=== PATIENT | female | born 1980 ===

== ENCOUNTER 2018-03-17 00:06 | Inpatient (IN) | payer SELFPAY ==
[2018-03-17] MEDS ORDERED: Morphine 4 MG/ML VIAL SLOW IVP PRN (00:37)
[2018-03-17] MEDS ORDERED: Sodium Chloride 0.9% 1,000 ML IV SCH ×2 (01:00→02:01)
[2018-03-17] MEDS ORDERED: Promethazine HCl 25 MG/ML VIAL IM/IV PRN (01:06)
--- NOTE | 2018-03-17 02:14 | PDOC.FPRHP ---
- History of Present Illness Chief Complaint: Abdominal Pain History of Present Illness: 37yo F with PMH of crohns disease s/p multiple abdominal surgeries including bowel resection and frequent SBOs direct admit from [facility] with Dx of SBO. Pt reports 12 hour history of worsening abdominal pain and distention. Pain characterized as crampy and 11/10 in the epigastric area. Last BM was 24 hours ago, stool was loose (pt has chronic diarrhea), no hematochezia/melena, no fevers/chills, nausea, no vomiting. At [facility] CT Abdomen/Pelvis showed a moderate-severe SBO. Pt lives in [place], [place]. ED Course: At [facility] CT Abdomen/Pelvis showed a moderate-severe SBO. Electrolytes WNL, BUN and Cr WNL. - Allergies/Adverse Reactions Allergies Allergy/AdvReac Type Severity Reaction Status Date / Time Iodinated Contrast- Oral and Allergy Verified 03/17/18 01:32 IV Dye ondansetron [From Zofran] Allergy Verified 03/17/18 01:32 Sulfa (Sulfonamide Allergy Verified 03/17/18 01:32 Antibiotics) tramadol Allergy Verified 03/17/18 01:32 - Home Medications Medication Instructions Recorded Confirmed Type Dextroamphetamine/Amphetamine 20 mg PO DAILY 03/17/18 03/17/18 History [Adderall 20 mg Tablet] Gabapentin 300 mg PO TID 03/17/18 03/17/18 History QUEtiapine Fumarate [SEROquel XR] 150 mg PO HS 03/17/18 03/17/18 History clonazePAM [Klonopin] 1 mg PO BID 03/17/18 03/17/18 History sulfaSALAzine [Azulfidine] 500 mg PO BID 03/17/18 03/17/18 History - History PMHx: Crohns (dx 2004), RA, Depression/Anxiety, Psoriasis PSHx: Bowel Resection, cholesystectomy, hernia repair, tubal ligation FHx: Mother- crohns, skin cancer, thyroid cancer Social: tobacco: 1/2PPD, EtOH: denies, drugs: denies - Review of Systems General: denies: fever/chills, night sweats Eyes: denies: eye pain, vision changes ENT: denies: nasal congestion, rhinorrhea Respiratory: denies: cough, congestion, shortness of breath Cardiovascular: denies: chest pain, palpitation Gastrointestinal: reports: nausea, diarrhea, abdominal pain. denies: vomiting, constipation, GI bleeding Genitourinary: denies: dysuria, polyuria Skin: denies: rashes, lesions Musculoskeletal: denies: swelling Neurological: denies: syncope, seizure - Vital signs BP: [147/90] HR: [73] RR: [20] Tmax: [97.7] Pox: [97]% on [RA] Wt: [74.843] - Physical Exam Constitutional: awake, alert and oriented, other (pt appears to be in moderate distress due to pain) HEENT: normocephalic and atraumatic, EOMI, MMM, good dention Heart: RRR, normal S1/S2, no murmurs/rubs/gallops Lungs: CTAB, no respiratory distress, good air movement Abdomen: soft, bowel sounds present, other (Diffusely tender to palpation, exquisite tenderness in epigastric area and LUQ. + Rebound tenderness, no masses palpated) Musculoskeletal: normal structure Skin: no rash/lesions, good turgor Heme/Lymphatic: no unusual bruising or bleeding, no purpura, no petechia Psychiatric: normal mood and affect, good judgment and insight FMR H&P: Results - Labs Result Diagrams: 03/17/18 01:58 03/17/18 01:58 FMR H&P: A/P - Problem List (1) SBO (small bowel obstruction) Status: Acute Code(s): K56.609 - UNSP INTESTNL OBST, UNSP TO PARTIAL VERSUS COMPLETE OBST (2) Crohn's colitis Status: Acute Code(s): K50.10 - CROHN'S DISEASE OF LARGE INTESTINE WITHOUT COMPLICATIONS (3) Rheumatoid arthritis Status: Acute Code(s): M06.9 - RHEUMATOID ARTHRITIS, UNSPECIFIED (4) Depression Status: Acute Code(s): F32.9 - MAJOR DEPRESSIVE DISORDER, SINGLE EPISODE, UNSPECIFIED - Plan Small Bowel Obstruction A- CT from [facility] reads moderate-severe sbo. Pt afebrile and not showing signs of perforation or necrosis. Has passed gas x2 since admission on the floor. No need for NG decompression at this time. Electrolytes normal. P- Continue to monitor clinical status. Will consider NG tube if pt stops auto- decompressing - NPO - NS 150ml/hr - CBC and CMP in AM, monitor bicarb, electrolytes, and wbc - prn morphine for pain control - prn phenergan for nausea - consider surgery consult in the AM Crohns Disease A- pt sees Dr. Bell in [place] regularly P- home meds - f/u with regular GI specialist after discharge Rheumatoid Arthritis -home meds Psoriasis -home meds Anxiety/Depression -home meds FMR H&P: Upper Level - Pertinent history 37 yo WF PMH Crohn's s/p bowel resection. Presents as direct admission from outside ER with CC of diffuse abdominal pain that began at 1600. States last bowel movement was yesterday. Has has multiple SBOs in the past. Most required hospitalization for IV fluids and pain management. She occasionally required NG tube decompression. Prior to my exam, the patient states she had passed gas twice since arriving to the hospital. ER: Labs, IV fluids, morphine, CT-Abdomen/pelvis - Pertinent findings Vitals: WNL GEN: Mild to moderate discomfort. CV: RRR Pulm: CTA-B Abdomen: BSx4 quadrants, diffuse TTP Labs: Unremarkable CT Abdomen/pelvis: SBO beginning near terminal ileum, absent appendix. - Plan Date/Time: 03/17/18 0206 I, Serge Ayala MD, have evaluated this patient and agree with findings/plan as outlined by technology internship resident. Pertinent changes/additions are listed here. 1. Small bowel obstruction vs stricture: Patient is now passing gas. will hold off NG tube placement at this time. IV NS at 150 mL/hr. consider gen surg consultation in the morning. Pain management with IV morphine and Nausea control with phenergan and zofran. Will advance diet once bowel movements have resumed. Repeat BMP in AM. 2. Crohn's disease: home meds 3. PPx: SCD 4. Diet: NPO 5. CODE: FULL Dispo: Inpatient, medical, >2 midnights Attending Addendum - Attending Addendum Date/Time: 03/17/18 1140 Patient left AMA this morning before being seen by me. She stated that she was feeling better and had a track meet for her son that she wasn't willing to miss.
[2018-03-17 02:20] LABS: #Eosinphils 0.2 thou/uL (0.0-0.7); #Monocytes 0.5 thou/uL (0.11-0.59); %Basophils 0.3 % (0.0-1.0); %Eosinophils 3.6 % (0.0-10.0); %Lymphocytes 34.6 % (21.0-51.0); %Monocytes 8.9 % (0.0-10.0); %Neutrophils 52.5 % (42.0-75.0); Hemoglobin 10.7 g/dL (12.0-16.0); Mean Corpuscular HGB CONC 34.7 g/dL (32.0-36.0); Mean Corpuscular Hemoglobin 29.4 pg (27.0-31.0); Mean Corpuscular Volume 84.6 fL (78.0-98.0); Mean Platelet Volume 6.8 fL (7.4-10.4); Platelet Count 287 thou/uL (130-400); Red Blood Cell (RBC) Count 3.65 mill/uL (4.20-5.40); White Blood Cell (WBC) Count 5.7 thou/uL (4.8-10.8)
[2018-03-17 02:39] LABS: ALT (SGPT) 29 U/L (8-55); AST (SGOT) 32 U/L (5-34); Albumin 3.7 g/dL (3.5-5.0); Alkaline Phosphatase 106 U/L (40-150); Anion Gap 10 mmol/L (10-20); BUN (Urea Nitrogen) 11 mg/dL (7.0-18.7); Bilirubin, Total 0.2 mg/dL (0.2-1.2); Calc. Creatinine Clearance 0 mL/min (70-130); Calcium 8.8 mg/dL (7.8-10.44); Carbon Dioxide 25 mmol/L (22-29); Chloride 110 mmol/L (98-107); Estimated GFR-MDRD Greater than 90; Globulin 2.6 g/dL (2.4-3.5); Glucose 87 mg/dL (70-105); Potassium 3.7 mmol/L (3.5-5.1); Protein, Total 6.3 g/dL (6.0-8.3); Sodium 141 mmol/L (136-145)
[2018-03-17 02:40] VITALS: BMI 28.3
[2018-03-17 07:52] VITALS: BP 100/62; TEMP 97.3
[2018-03-17] MEDS ORDERED: clonazePAM 1 MG TAB PO SCH (09:00)
[2018-03-17] MEDS ORDERED: Enoxaparin Sodium 40 MG/0.4 ML SYRINGE SC SCH (09:00)
[2018-03-17] MEDS ORDERED: sulfaSALAzine 500 MG TAB PO SCH (09:00)
[2018-03-17] MEDS ORDERED: Gabapentin 300 MG CAP PO SCH (09:00)
[2018-03-17] MEDS ORDERED: Dextroamphetamine/Amphetamine [Adderall 20 Mg Tablet] 20 MG PO SCH (09:00)
[2018-03-17] MEDS ORDERED: QUEtiapine Fumarate ER 50 MG TAB PO SCH (21:00)
== END 2018-03-17 07:53 | disposition home or self-care (01) | DRG 389 ==
LOC: SJJU 00:29
PROVIDERS: ADMIT Student in an Organized Health Care Education/Training Program; ATTEND Student in an Organized Health Care Education/Training Program
DX: K56.609 Unspecified intestinal obstruction, unspecified as to partial versus complete obstruction (principal); K50.10 Crohn's disease of large intestine without complications; F32.9 Major depressive disorder, single episode, unspecified; M06.9 Rheumatoid arthritis, unspecified
CPT/HCPCS: 36415; 80053; 85025; J2270; J2550